=== PATIENT | female | born 1990 | race Caucasian/White ===

== ENCOUNTER 2020-11-19 00:13 | Emergency (ER) | payer OTHER, SELFPAY ==
--- NOTE | ~2020-11-19 | US_ITS ---
EXAMINATION: US OB <=14 wk fetus w TV EXAM DATE: 11/19/2020 01:50 INDICATION: rule out ectopic C/O miscarriage. Passed clot. 1st trimester. TECHNIQUE: Pelvic obstetrical transabdominal sonogram was performed by a technologist. There are mu ltiple grayscale and Doppler images available for interpretation. There are no earlier studies of th is gestation for comparison. FINDINGS: The uterus measures 7.0 x 3.6 x 3.5 cm. There is gestation sac within the endometrium with a yolk sac identified. Mean sac diameter of 8 mm corresponds to estimated gestational age 5 weeks 3 d ays. No pole could be confirmed at this time, cannot confirm viability. No evidence of subchori onic hemorrhage. The ovaries were both identified and are morphologically normal, no extrauterine pre gnancy identified. IMPRESSION: Small intrauterine gestation sac, age by ultrasound 5 weeks 3 days. Cannot confirm viabi lity at this time. Consider 1-2 week follow-up ultrasound. Reviewed, dictated and finalized at location A. CTOR OF ROOMS IMPRESSION: Small intrauterine gestation sac, age by ultrasound 5 weeks 3 days . Cannot confirm viability at this time. Consider 1-2 week follow-up ultrasound .
[2020-11-19 00:17] VITALS: BP 134/78; PULSE 101; RESP 18; TEMP 35.9; O2SAT 98
--- NOTE | 2020-11-19 00:23 | ED.FEMALEGU ---
HPI - Female Genitourinary General Chief complaint: Urogenital-Female Stated complaint: miscarriage Time Seen by Provider: 11/19/20 00:23 Source: patient and family Limitations: no limitations History of Present Illness HPI Narrative: Patient is a 30-year-old female, with a history of tethered cord, spinal stimulator in place, currently G1, P0, 6 weeks dated by last menstrual period who presents for evaluation of vaginal bleeding. Patient reports some mild right-sided abdominal pain, vaginal spotting earlier this evening. Patient reports there was one blood clot present. She denies breast bleeding or soaking through greater than 1-2 pads per hour. She denies any current pain. No nausea, vomiting. No back pain, dysuria or hematuria. Patient is supposed to be following with [facility] physician at [facility] for this , currently has an appointment scheduled for next week. She has not had an ultrasound yet this . No intercourse this evening. No pelvic trauma. No recent heavy lifting. Related Data Home Medications Medication Instructions Recorded Confirmed Cymbalta 11/19/20 buspirone mg 11/19/20 desipramine 11/19/20 linaclotide [Linzess] mcg 11/19/20 Allergies Allergy/AdvReac Type Severity Reaction Status Date / Time cephalexin [From Keflex] Allergy Hives Verified 11/19/20 00:19 Review of Systems Review of Systems: Narrative: CONSTITUTIONAL: Denies fever, chills, or sweats. EYES: Denies visual changes, redness, or discharge. ENT: Denies rhinorrhea, congestion, sore throat, or otalgia. CARDIOVASCULAR: Denies chest pain, palpitations, or edema. RESPIRATORY: Denies cough or dyspnea. GASTROINTESTINAL: Denies abdominal pain, nausea, vomiting, or diarrhea. GENITOURINARY: Denies dysuria or hematuria. Reports vaginal bleeding. SKIN: Denies rash or itching. MUSCULOSKELETAL: Denies back pain, joint pain, or myalgia. NEUROLOGIC: Denies headache, numbness, or weakness. PSYCHIATRIC: Reports anxiety. [facility] Past Medical History Medical History Tethered cord syndrome Surgical History Surgical History S/P insertion of spinal cord stimulator Social History Social History (Updated 11/19/20 @ 00:40 by Isaura Tesfaye MD) Smoking status: Never smoker Alcohol intake: never Substance use: never Living arrangements: with family Gender identity (if verbalized by the patient): Female Sexual Orientation (if Verbalized by the Patient): Straight or Heterosexual Exam Narrative: Exam Narrative: GENERAL: Awake, alert, conversant HEAD: Normocephalic, atraumatic. EYES: PERRLA and EOMI. ENT: Nares clear, no rhinorrhea or epistaxis. Mucous membranes moist. NECK: Supple. CHEST: No respiratory distress, breathing even and non labored HEART: Regular rate, sinus rhythm ABDOMEN:Non distended, non tender : Labia majora and minora normal without lesions. Vagina without blood. No blood clots. No cervical motion tenderness. No adnexal tenderness or fullness bilaterally. Mucoid discharge present. EXTREMITIES: Normal range of motion. No edema. SKIN: Warm, dry, no rash. NEURO:No focal deficits. Alert and oriented x3 Course Vital Signs Vital signs: Vital Signs Temperature 35.9 C L 11/19/20 00:17 Pulse Rate 101 H 11/19/20 00:17 Respiratory Rate 18 11/19/20 00:17 Blood Pressure 134/78 11/19/20 00:17 Pulse Oximetry 98 11/19/20 00:17 Temperature 36.9 C 11/19/20 02:41 Pulse Rate 78 11/19/20 02:41 Respiratory Rate 16 11/19/20 02:41 Blood Pressure 138/86 11/19/20 02:41 Pulse Oximetry 100 11/19/20 02:41 MDM - Female Genitourinary MDM Narrative Medical decision making narrative: Patient presented for evaluation of vaginal bleeding in setting of early . At the time of assessment, ABCs are intact and vital signs are stable. Laboratory results
[2020-11-19 00:50] LABS: Basophils Absolute Auto 0.1 K/mm3 (0.0-0.1); Basophils Percent Auto 0.7 % (0.2-1.2); Eosinophils Absolute Auto 0.2 K/mm3 (0-0.3); Eosinophils Percent Auto 2.1 % (0-4.4); Hemoglobin 13.8 g/dL (12.0-15.0); Immature Granulocyte Absolute 0.02 K/mm3 (0.00-0.031); Immature Granulocyte Percent A 0.2 % (0-0.5); Lymphocytes Percent Auto 34.2 % (18.3-44.2); Mean Corpuscular HGB Conc 33.7 g/dl (32-36); Mean Corpuscular Hemoglobin 32.2 pg (26-34); Mean Corpuscular Volume 95.6 fl (80-100); Monocytes Absolute Auto 0.7 K/mm3 (0.1-0.6); Monocytes Percent Auto 8.2 % (2.6-8.5); Neutrophils Absolute Auto 4.8 K/mm3 (1.3-6.7); Neutrophils Percent Auto 54.6 % (45.5-73.1); Platelet Count Result 331 k/mm3 (150-375); Red Blood Count 4.29 M/mm3 (4.2-5.4); White Blood Count 8.8 K/mm3 (4.5-10.0)
[2020-11-19 01:02] LABS: Alanine Aminotransferase 23 U/L (4-35); Albumin Level 4.2 g/dL (3.5-5.1); Alkaline Phosphatase 74 U/L (38-126); Anion Gap 8 mmol/L (8-16); Aspartate Amino Transferase 28 U/L (14-36); Bilirubin,Total 0.4 mg/dL (0.2-1.3); Blood Urea Nitrogen 11 mg/dL (7-17); Calcium 9.6 mg/dL (8.4-10.2); Carbon Dioxide 26 mmol/L (22-30); Chloride 102 mmol/L (98-107); Estimated CRCL calculation 118 ml/min; Estimated Glomerular Filt Rate > 60; Glucose 96 mg/dL (65-105); Potassium 3.8 mmol/L (3.4-5.0); Sodium 136 mmol/L (137-145)
[2020-11-19 01:09] LABS: Prothrombin Time 13.4 Seconds (11.1-14.7)
[2020-11-19 01:10] LABS: Partial Thromboplastin Time 24.6 SECONDS (22.3-36.8)
[2020-11-19 01:32] LABS: Add Urine Microscopic? YES; Appearance Urine Cloudy (Clear); Bacteria Urine Trace /hpf; Bilirubin Urine Negative (Negative); Blood Urine 1+ (Negative); Color Urine Yellow (Yellow); Glucose Urine UA Negative (Negative); Ketones Urine Negative (Negative); Leukocyte Esterase Ur 2+ LEU/UL (Negative); Mucus Urine Rare /lpf; Nitrate Urine Negative (Negative); Protein Urine Negative (Negative); Specific Grav Ur 1.024 (1.001-1.035); Squamous Epithelial Cell Urine Many /hpf (Few); Urobilinogen Urine Negative mg/dL (<2.0); WBC Urine 31-50 /hpf
[2020-11-19 02:41] VITALS: BP 138/86; PULSE 78; RESP 16; TEMP 36.9; O2SAT 100
== END 2020-11-19 02:42 | disposition home or self-care (01) ==
PROVIDERS: Emergency Provider Emergency Medicine
DX: O23.11 Infections of bladder in pregnancy, first trimester (principal); O99.891 Other specified diseases and conditions complicating pregnancy; Q06.8 Other specified congenital malformations of spinal cord; Z3A.01 Less than 8 weeks gestation of pregnancy; Z96.82 Presence of neurostimulator
CPT/HCPCS: 36415; 76801; 76817; 80053; 81001; 84443; 84702; 85025; 85461; 85610; 85730; 87086; 99284

== ENCOUNTER 2022-04-25 12:29 | Emergency (ER) | payer OTHER, SELFPAY ==
--- NOTE | 2022-04-25 12:39 | ED.URI ---
HPI - URI/Sore Throat General Chief Complaint: Upper Respiratory Infection Stated Complaint: SORE THROAT/SWOLLEN GLANDS Time Seen by Provider: 04/25/22 12:39 Source: patient and RN notes reviewed History of Present Illness HPI Narrative: Patient is a 31-year-old female who presents the urgent care with complaints of sore throat, swollen glands, congestion and body aches. Patient states that started last Monday and she did have a negative COVID test yesterday. Patient denies of any ill exposures. Denies any fever, nausea or vomiting. No other acute complaints. No acute distress noted. Patient aware of the plan of care. Some parts of this dictation were generated by voice recognition software and may contain typographical and/or grammatical inaccuracies. Related Data Home Medications Medication Instructions Recorded Confirmed buspirone 15 mg tablet tablet 04/25/22 desipramine 10 mg tablet tablet 04/25/22 duloxetine 30 mg capsule,delayed cap PO 04/25/22 release linaclotide 290 mcg capsule cap 04/25/22 (Linzess) norgestimate 0.18 mg/0.215 mg/0.25 tablet 04/25/22 mg-ethinyl estradiol 25 mcg tablet (Fti-Lh-Yhsjtbit) topiramate 25 mg tablet tablet 04/25/22 Allergies Allergy/AdvReac Type Severity Reaction Status Date / Time cephalexin [From Keflex] Allergy Hives Verified 04/25/22 13:11 Review of Systems Review of Systems: CONSTITUTIONAL: Denies fever, chills, or sweats. EYES: Denies visual changes, redness, or discharge. ENT: Reports of postnasal drainage, sinus congestion and sore throat CARDIOVASCULAR: Denies chest pain, palpitations, or edema. RESPIRATORY: Denies cough or dyspnea. GASTROINTESTINAL: Denies abdominal pain, nausea, vomiting, or diarrhea. GENITOURINARY: Denies dysuria or hematuria. SKIN: Denies rash or itching. MUSCULOSKELETAL: Denies back pain, joint pain. Reports of body aches NEUROLOGIC: Denies headache, numbness, or weakness. All other systems reviewed are negative, except as documented in HPI. [facility] Past Medical History Medical History Tethered cord syndrome Surgical History Surgical History S/P insertion of spinal cord stimulator Social History Social History (Updated 11/19/20 @ 00:40 by Isaura Tesfaye MD) Smoking status: Never smoker Alcohol intake: never Substance use: never Gender identity (if verbalized by the patient): Female Sexual Orientation (if Verbalized by the Patient): Straight or Heterosexual Comments At the time of my signature, I reviewed and agree with the nursing past medical, surgical, social, and family history. There is no relevant family history pertinent to the patient complaint. Exam Narrative: GENERAL: This is a well-nourished, well-developed patient, in no apparent distress. HEAD: normocephalic, atraumatic. EYES: PERRL. Sclera clear/white. Vision is grossly intact. EARS: External ears normal, auditory canals clear and without drainage, TMs normal without perforation. Hearing grossly intact. NOSE: External nose normal with no obvious nasal discharge, nares without redness, clear rhinorrhea. THROAT: Mucous membranes moist, mild bilateral tonsillar edema with left exudate and moderate postnasal drainage. NECK: Neck supple, non-tender without lymphadenopathy CARDIOVASCULAR: Regular rate and rhythm without murmurs, gallops, or rubs. RESPIRATORY: Clear to auscultation. Breath sounds equal bilaterally. No wheezes, rales, or rhonchi. SKIN: warm, intact with no suspicious lesions or rash, good texture and turgor. NEURO: awake, alert, and oriented to person, place and time. There were no obvious focal neurologic abnormalities. EXTREMITIES: No clubbing, cyanosis, or edema. Course Course Level of Care: Express Care Visit Vital Signs Vital signs: Vital Signs Temperature 97.3 F L 04/25/22 13:12 Pulse Rate 129 H 04/25/22
[2022-04-25 13:12] VITALS: BP 122/71; PULSE 129; RESP 16; TEMP 36.3; O2SAT 100
[2022-04-25 13:14] VITALS: BP 122/71; PULSE 129; RESP 16; TEMP 36.3; O2SAT 100
== END 2022-04-25 13:35 | disposition home or self-care (01) ==
PROVIDERS: Emergency Provider Nurse Practitioner Family
DX: B34.9 Viral infection, unspecified (principal); J02.9 Acute pharyngitis, unspecified
CPT/HCPCS: 87081; 87880; 99213; G0463

== ENCOUNTER 2022-07-27 13:48 | Emergency (ER) | payer OTHER, SELFPAY ==
[2022-07-27] VITALS (19 sets, daily range): BP systolic 107–143; BP diastolic 56–80; PULSE 116–126; RESP 16–18; TEMP 36.8; O2SAT 95–100
--- NOTE | ~2022-07-27 | XR_ITS ---
XR lumbar spine 2-3V DATE: 07/27/2022 16:05 INDICATION: Back pain TECHNIQUE: AP, lateral, coned lateral lumbosacral views COMPARISON: 07/27/2022 thoracic spine FINDINGS: Status post laminectomy at L5. Small screws are noted at the posterior elements at L4. Normal alignment of the lumbar spine. Lumbar and lumbosacral interspaces are relatively well preserve d. No fracture or bone destruction is evident. Included lower thoracic and lumbar pedicles are intact . Generated on ice is noted in the subcutaneous tissues of the left back, with neurotransmitter leads e xtending into the posterior aspect of the thoracic spinal canal the T8-9 level. Minimal levoscoliosis of the lumbar spine. The sacroiliac joints are intact. Status post cholecystectomy. IMPRESSION: Left sided generator and lower posterior thoracic spinal neurotransmitter leads Status post cholecystectomy Status post laminectomy Reviewed, dictated and finalized at location B. IMPRESSION: Left sided generator and lower posterior thoracic spinal neurotrans mitter leads Status post cholecystectomy Status post laminectomy
--- NOTE | ~2022-07-27 | CT_ITS ---
EXAMINATION: CTA chest PE protocol DATE: 07/27/2022 18:15 INDICATION: chest pain, dyspnea, elevated dimer TECHNIQUE: Computed tomography angiography (CTA) of the chest was performed with 100 mL Omnipaque-350 intravenous contrast timed to evaluate the pulmonary arteries. Coronal maximum intensity projection 3D-reconstructions were created by the technologist. The dose-length product (DLP) was 315.86 mGy-cm. Automated exposure control and iterative reconstruction technique were employed. COMPARISON: Chest x-ray, same date. FINDINGS: Lung parenchyma and airways: Motion limited evaluation. Scattered mild groundglass opacities mosaic a ttenuation. Left dependent atelectasis. Pleura: Unremarkable. Thoracic inlet, axillae and chest wall: Unremarkable. Thoracic aorta: Normal. Mediastinum: Normal. Heart and pericardium: Normal. Coronary artery calcifications: Absent. Upper abdomen: No significant finding. Bones: No acute osseous finding. Stimulator leads terminate in the thoracic canal. Pulmonary arteries: Study quality: Examination severely limited by motion artifact, particularly with in the lower lobes. No central or segmental upper lobe embolus. IMPRESSION: Examination is nondiagnostic for pulmonary embolus in the lower lobes. No central or segmental upper lobe embolus detected.. Mild mosaic attenuation which can be seen with asthma, bronchiolitis oblitera ns, hypersensitivity pneumonitis, and chronic thromboembolic disease. Reviewed, dictated and finalized at location K. IMPRESSION: Examination is nondiagnostic for pulmonary embolus in the lower lobes. No centr al or segmental upper lobe embolus detected.. Mild mosaic attenuation which can be seen with asthma, bronchiolitis obliterans, hypersensitivity pneumonitis, a nd chronic thromboembolic disease.
--- NOTE | ~2022-07-27 | XR_ITS ---
EXAMINATION: XR chest 2V Exam Date/Time: 07/27/2022 14:38 CDT HISTORY: left posterior rib pain,midsternal chest pain. no cardiac hx Comparison: EXAMINATION: XR chest 2V Exam Date/Time: 07/27/2022 14:38 CDT HISTORY: left posterior rib pain,midsternal chest pain. no cardiac hx Comparison: None available. RESULT: Lines, tubes, and devices: Cholecystectomy clips. Stimulator leads terminating over the lower thorac ic spine. Lungs and pleura: Clear. Cardiomediastinal silhouette: Normal. Other: No acute osseous or upper abdominal finding. Thoracic scoliosis IMPRESSION: No acute cardiopulmonary process. . RESULT: Lines, tubes, and devices: None. Lungs and pleura: Clear. Cardiomediastinal silhouette: Stable. Other: No acute osseous or upper abdominal finding. IMPRESSION: No acute cardiopulmonary process. Reviewed, dictated and finalized at location K. IMPRESSION: No acute cardiopulmonary process. . RESULT: Lines, tubes, and devices: None. Lungs and pleura: Clear. Cardiomediastinal silhouette: Stable. Other: No acute osseous or upper abdominal finding.
--- NOTE | ~2022-07-27 | XR_ITS ---
XR thoracic spine 2V DATE: 07/27/2022 16:05 INDICATION: Thoracic pain. TECHNIQUE: AP and lateral views COMPARISON: None FINDINGS: There is approximately 30 degrees dextroscoliosis measured from T4 to T8. No fracture or dislocation or bone destruction is detected. The thoracic pedicles are intact. No para spinal soft tissue thickening. A generator device overlies the left abdomen with leads at the posterior spinal canal at the T8-9 lev el. Status post cholecystectomy. IMPRESSION: Dextroscoliosis Reviewed, dictated and finalized at location B. IMPRESSION: Dextroscoliosis
--- NOTE | 2022-07-27 14:15 | ECG_ITS ---
Measurements Intervals [place] Rate: 126 P: 63 [place]: 147 QRS: 34 QRSD: 90 T: 60 QT: 335 QTc: 486 Interpretive Statements SINUS TACHYCARDIA POSSIBLE RIGHT VENTRICULAR CONDUCTION DELAY [RSR (QR) IN V1/V2] NONSPECIFIC ST & T-WAVE ABNORMALITY ABNORMAL RHYTHM ECG NO PREVIOUS ECG AVAILABLE FOR COMPARISON Electronically Signed On 07-27-2022 20:01:59 CDT by Veronica Jung M.D.
[2022-07-27 14:44] LABS: Basophils Absolute Auto 0.1 K/mm3 (0.0-0.1); Basophils Percent Auto 0.6 % (0.2-1.2); Eosinophils Percent Auto 0.2 % (0-4.4); Hematocrit 42.2 % (37.0-47.0); Hemoglobin 13.4 g/dL (12.0-15.0); Immature Granulocyte Absolute 0.03 K/mm3 (0.00-0.031); Immature Granulocyte Percent A 0.3 % (0-0.5); Lymphocytes Absolute Auto 0.82 K/mm3 (0.9-3.2); Lymphocytes Percent Auto 7.9 % (18.3-44.2); Mean Corpuscular HGB Conc 31.8 g/dl (32-36); Mean Corpuscular Hemoglobin 28.3 pg (26-34); Mean Platelet Volume 10.1 fl (7.4-10.4); Monocytes Absolute Auto 0.6 K/mm3 (0.1-0.6); Monocytes Percent Auto 6.1 % (2.6-8.5); Neutrophils Absolute Auto 8.8 K/mm3 (1.3-6.7); Neutrophils Percent Auto 84.9 % (45.5-73.1); Platelet Count Result 363 k/mm3 (150-375); Red Blood Count 4.74 M/mm3 (4.2-5.4); Red Cell Distribution Width 15.2 % (11.5-14.5); White Blood Count 10.3 K/mm3 (4.5-10.0)
[2022-07-27 14:52] LABS: Alanine Aminotransferase 25 U/L (6-35); Albumin Level 4.4 g/dL (3.5-5.1); Alkaline Phosphatase 132 U/L (38-126); Anion Gap 14 mmol/L (8-16); Aspartate Amino Transferase 19 U/L (14-36); Bilirubin,Total 0.5 mg/dL (0.2-1.3); Blood Urea Nitrogen 11 mg/dL (7-17); Calcium 9.1 mg/dL (8.4-10.2); Carbon Dioxide 21 mmol/L (22-30); Chloride 101 mmol/L (98-107); Estimated CRCL calculation 91 ml/min; Estimated Glomerular Filt Rate > 60; Glucose 98 mg/dL (65-110); Potassium 3.7 mmol/L (3.4-5.0); Sodium 136 mmol/L (137-145)
--- NOTE | 2022-07-27 15:17 | ED.GENADULT ---
HPI - General Adult General Chief complaint: Unspecified Stated complaint: Think i have a rib out Time Seen by Provider: 07/27/22 15:17 Source: patient Mode of arrival: ambulatory Limitations: no limitations History of Present Illness HPI narrative: Patient is a 32-year-old female with a history of tethered cord, spinal stimulator, presenting to the emergency department for evaluation anterior chest pain and back pain. Patient states that she has been having significant back pain since last night without recent fall or injury. Patient reports spasm-like pain and pressure. She reports pain with deep inspiration. She denies fever, chills, cough or hemoptysis. She denies radiation of the pain to the jaw, shoulder, she does report mild neck pain. She also reports lower back pain which is chronic for her but worsened from typical. Patient did see a chiropractor today which did not improve her symptoms. She denies any significant lower extremity weakness or numbness. She denies any saddle anesthesia, difficulty with bowel or bladder function. Patient has been taking Tylenol and ibuprofen at home without improvement in her symptoms. Pt did see her chiropractor today, states he used a heating pad, gun which does work with electric impulses, and then denies any large adjustment or manipulation today. Pt states her pain was better for an hour before spasm began again. Pt also states her stimulator had been turned off, and that it has been present for the past ten years. She is wondering if that is causing an exacerbation of her pain. In the past, gabapentin has helped the most with pain. She has not followed with pain management as numerous medications with pain management never worked. Related Data Home Medications Medication Instructions Recorded Confirmed buspirone 15 mg tablet 1 tablet PO BID 04/25/22 04/25/22 desipramine 10 mg tablet 1 tablet PO BID 04/25/22 04/25/22 duloxetine 30 mg capsule,delayed 1 cap PO BID 04/25/22 04/25/22 release linaclotide 290 mcg capsule 1 cap PO BID 04/25/22 04/25/22 (Linzess) norgestimate 0.18 mg/0.215 mg/0.25 1 tablet PO DAILY 04/25/22 04/25/22 mg-ethinyl estradiol 25 mcg tablet (Chf-Ty-Qhyymszb) topiramate 25 mg tablet 1 tablet PO BID 04/25/22 04/25/22 Allergies Allergy/AdvReac Type Severity Reaction Status Date / Time cephalexin [From Keflex] Allergy Hives Verified 07/27/22 14:15 Review of Systems Review of Systems: CONSTITUTIONAL: Denies fever, chills, or sweats. ENT: Denies rhinorrhea, congestion, sore throat, or otalgia. CARDIOVASCULAR: Reports chest pain, palpitations, denies leg edema RESPIRATORY: Denies cough or dyspnea. GASTROINTESTINAL: Reports pelvic pain, nausea GENITOURINARY: Denies dysuria or hematuria. SKIN: Denies rash or itching. MUSCULOSKELETAL: Reports back pain without other joint pain or myalgias NEUROLOGIC: Denies headache, numbness, or weakness. [facility] Past Medical History Medical History Tethered cord syndrome Surgical History Surgical History S/P insertion of spinal cord stimulator Social History Social History Smoking status: Never smoker Alcohol intake: never Substance use: never Gender identity (if verbalized by the patient): Female Sexual Orientation (if Verbalized by the Patient): Straight or Heterosexual Exam Narrative: GENERAL: Awake, alert, conversant HEAD: Normocephalic, atraumatic. EYES: PERRLA and EOMI. ENT: Nares clear, no rhinorrhea or epistaxis. Mucous membranes moist. NECK: Supple. CHEST: No respiratory distress, breathing even and non labored, positive chest wall tenderness HEART: Tachycardic rate, sinus rhythm Thorax: No midline cervical tenderness, positive thoracic and lumbar midline tenderness, positive paraspinal tenderness ABDOMEN:Non distended,
[2022-07-27] MEDS: diazePAM (*CRX) 5 MG TABLET PO (15:44)
--- NOTE | 2022-07-27 15:50 | PC.NURSE ---
patient does not want to give a urine specimen for preg test since she is on her period. patient is ok to sign refusal form
[2022-07-27] MEDS: MORPHINE SULFATE (*CRX) 4 MG/ML INJ IV PUSH (16:24)
[2022-07-27] MEDS: SODIUM CHLORIDE 0.9% IV 500 ML 999 ML IV CONT (16:24)
[2022-07-27] MEDS: ONDANSETRON INJ 4 MG/2 ML VIAL IV PUSH (16:24)
[2022-07-27 17:18] LABS: INR 1.1; Prothrombin Time 13.4 Seconds (11.1-14.7)
[2022-07-27 17:19] LABS: Partial Thromboplastin Time 25.1 SECONDS (22.3-36.8)
[2022-07-27 17:24] LABS: Troponin I < 0.012 ng/mL (0.000-0.034)
[2022-07-27 17:51] LABS: D Dimer 0.85 ug/mL (<0.48)
[2022-07-27] MEDS: KETOROLAC 15 MG/ML VIAL (*BKC) IV PUSH (19:12)
[2022-07-27 19:30] LABS: Troponin I < 0.012 ng/mL (0.000-0.034)
== END 2022-07-27 20:02 | disposition home or self-care (01) ==
PROVIDERS: Emergency Provider Emergency Medicine
DX: M62.830 Muscle spasm of back (principal); Q06.8 Other specified congenital malformations of spinal cord; Z96.82 Presence of neurostimulator; R00.0 Tachycardia, unspecified; R94.31 Abnormal electrocardiogram [ECG] [EKG]
CPT/HCPCS: 36415; 71046; 71275; 72070; 72100; 80053; 84484; 85025; 85380; 85610; 85730; 93005; 96374; 96375; 99284; A9270; J1885; J2270; J2405; J7040; Q9967

== ENCOUNTER 2023-03-14 07:28 | Emergency (ER) | payer OTHER, SELFPAY ==
[2023-03-14 07:32] VITALS: BP 116/62; PULSE 112; RESP 18; TEMP 36.4; O2SAT 100
[2023-03-14 08:07] LABS: Strep Group A RT-PCR DETECTED (Negative)
--- NOTE | 2023-03-14 09:05 | ED.WEAKNESS ---
HPI - Weakness General Chief complaint: Weakness Stated complaint: sore throat Time Seen by Provider: 03/14/23 08:45 History of Present Illness HPI Narrative: Pt complains of general body aches and sore throat and difficulty swallowing for a couple of days. Pt denies fever. No known exposures to strep. Related Data Home Medications Medication Instructions Recorded Confirmed norgestimate 0.18 mg/0.215 mg/0.25 1 tablet PO DAILY 04/25/22 04/25/22 mg-ethinyl estradiol 25 mcg tablet (Yvj-Lr-Deyzjthx) buspirone 15 mg tablet 15 mg PO BID 02/09/23 duloxetine 30 mg capsule,delayed 30 mg PO TID 02/09/23 release linaclotide 290 mcg capsule 290 mcg PO DAILY 02/09/23 (Linzess) Allergies Allergy/AdvReac Type Severity Reaction Status Date / Time cephalexin [From Keflex] Allergy Hives Verified 03/14/23 07:38 Review of Systems Review of Systems: All systems reviewed & are unremarkable except as noted in HPI and below PMFSH Past Medical History Medical History Anxiety Cholecystectomy planned 2012 Tethered cord syndrome Surgical History Surgical History H/O section 2020 History of back surgery L4- L5 2010 X4 S/P insertion of spinal cord stimulator Social History Social History Smoking status: Never smoker Alcohol intake: current Substance use: never Living arrangements: with family Gender identity (if verbalized by the patient): Female Sexual Orientation (if Verbalized by the Patient): Straight or Heterosexual Exam Const: General: healthy appearing and no acute distress Nutritional Appearance: well nourished Orientation/consciousness: patient oriented x3 Limitations: no limitations HENMT: Head: normal to inspection Mouth: Yes Normal oral and palatal mucosa present Other: posterior pharynx erythematous with exudate and tonsils touching uvula at midline but no definite abscess Eyes: EOM: EOMs intact bilaterally Neck: Neck: normal visual inspection and lymphadenopathy Resp: Effort & Inspection: normal respiratory effort Auscultation: clear to auscultation bilaterally Cardio: Rate: regular rate Rhythm: regular rhythm GI: GI Palp: Yes Soft to palpation Auscultation: normal bowel sounds Skin: General skin exam: normal color Rashes: no rashes Wounds: no wounds Neuro: General: patient oriented x3 and moves all extremities Speech: normal speech Extrem: General: normal to inspection and no clubbing, cyanosis or edema Psych: Mental Status: mental status grossly normal Affect: normal affect Attitude: cooperative Course Vital Signs Vital signs: Vital Signs Temperature 97.6 F 03/14/23 07:32 Pulse Rate 112 H 03/14/23 07:32 Respiratory Rate 18 03/14/23 07:32 Blood Pressure 116/62 03/14/23 07:32 Pulse Oximetry 100 03/14/23 07:32 Oxygen Delivery Room Air 03/14/23 07:32 Temperature 97.6 F 03/14/23 07:32 Pulse Rate 112 H 03/14/23 07:32 Respiratory Rate 18 03/14/23 07:32 Blood Pressure 116/62 03/14/23 07:32 Pulse Oximetry 100 03/14/23 07:32 Oxygen Delivery Room Air 03/14/23 07:32 MDM - Weakness MDM Narrative Medical decision making narrative: Pt has ST and body aches strep screen positive. Pt would like a IM injection so she doesn't have to swallow pills. Bicillin LA 1.2 million units IM. Will prescribe viscous lido for pain control, soft foods and liquids for now until better. Lab Data Attestation: I reviewed the patient's lab results. Labs: Lab Results 03/14/23 Range/Units 07:41 Group A Strep (PCR) Detected A (Negative) Discharge Plan Discharge Clinical Impression: Strep pharyngitis Patient Disposition: Home, Self-Care Condition: Stable Instructions: Antibiotic Form, Strep Throat (DC) Prescriptions: No Action
== END 2023-03-14 09:20 | disposition home or self-care (01) ==
PROVIDERS: Emergency Provider Emergency Medicine
DX: J02.0 Streptococcal pharyngitis (principal); F41.9 Anxiety disorder, unspecified; Z90.49 Acquired absence of other specified parts of digestive tract; Z96.82 Presence of neurostimulator
CPT/HCPCS: 87651; 96372; 99283; A4565; J0558

== ENCOUNTER 2023-04-20 00:14 | Day surgery (SDC) | payer OTHER, SELFPAY ==
[2023-04-12 14:33] VITALS: BMI 26.6
--- NOTE | 2023-04-12 14:44 | PC.NURSE ---
Report to the Outpatient Waiting Room, entrance under the green pavilion located off [facility], at time 9:30 on date 04/20/23. Planned Procedure Time: 11:30. Time changes happen often and if your time is changed the preop area will call you the afternoon before. - You and your visitor will be asked to self-screen and do not enter if you have any COVID symptoms. - A mask is optional within the hospital at this time. Patients may have clear liquids (water, carbonated beverages, clear teas, apple juice) until 3 hours prior to surgery (8:30) with a maximum of 20 ounces. - No food from midnight until time of surgery Take the following medications with a SIP of water the morning of surgery: BUSPIRONE, DULOXETINE DO NOT STOP ANY OF YOUR OTHER PRESCRIPTION MEDICATIONS PRIOR TO SURGERY EXCEPT THE FOLLOWING Medications to discontinue per physician: N/A Date to take last dose: N/A Please no make-up, nail guatemalan, hairspray, perfume, deodorant, or body powder the day of surgery. No jewelry (including any body piercings) or valuables the day of surgery, leave them at home. Please take a shower or bath the night before, or the morning of, surgery with an antibacterial soap. Wear comfortable, loose fitting clothing. - Jewelry must be removed prior to entering the operating room. Rings and piercings that are not removed may be cut off. - The hospital will not accept responsibility for valuables. - Please leave all valuables, including medications, at home the day of surgery. If you are going home after surgery, a licensed pile driver engineer must drive you home. - NO public transportation without another adult if you receive anesthesia. - We recommend that an adult stay with you for 24 hours following discharge. - We also recommend that you do not drive, make important decision, drink alcoholic beverages, or take any drugs that were not prescribed by your health care provider for at least 24 hours after your discharge time. Follow any additional instructions given to you from your surgeon. If you or anyone in your household have experienced Covid symptoms in the past week, please notify your surgeon or the nurse liaison at the phone number below for possible testing. Telephone instructions given to PT - ADENIKE DELACRUZ and asked if any additional questions and then verbalized understanding. Patient advised to call surgeon office or pre surgery nurse liaison [phone] if any additional questions.
[2023-04-20] VITALS (12 sets, daily range): BP systolic 121–137; BP diastolic 66–85; PULSE 100–124; RESP 12–20; TEMP 36.5–36.9; O2SAT 92–100
--- NOTE | ~2023-04-20 | XR_ITS ---
EXAMINATION: XR fluoroscopy no charge DATE: 04/20/2023 12:28 INDICATION: Replacement of toast, stimulator leads TECHNIQUE: 6 fluoroscopic images of the lower thoracic spine were obtained during procedure performed by Dr Yahir Urias. Radiologist was not present for the imaging or procedure. The amount of fluoroscop y time used during this procedure was 0.1 minutes. COMPARISON: 07/27/2022 FINDINGS: [employer] image redemonstrates a pair of stimulator leads project over the central canal of the lower tho racic spine with distal tips at the level of T7-T8. Subsequent images demonstrate removal of the lead s and placement of a set of 4 new leads also position of the central canal of the lower thoracic spin e with distal tips also at the level of T7-T8. Cholecystectomy clips in the right upper quadrant. IMPRESSION: 1. Fluoroscopy utilized during placement of spinal stimulator leads at the lower thoracic spine. See procedure note for further detail. Reviewed, dictated and finalized at location A. IMPRESSION: 1. Fluoroscopy utilized during placement of spinal stimulator leads at the lowe r thoracic spine. See procedure note for further detail.
[2023-04-20] MEDS: VANCOMYCIN 1,250 MG/NS 250 ML BAG 166.67 MG IVPB (10:15)
[2023-04-20] MEDS: LACTATED RINGERS 1,000 ML 30 ML IV CONT ×3 (10:15→14:33)
[2023-04-20 10:25] LABS: Hematocrit 43.1 % (37.0-47.0); Hemoglobin 13.8 g/dL (12.0-15.0)
--- NOTE | 2023-04-20 10:33 | P.HP_ITS ---
H&P: HPI History of Present Illness Date/Time: 04/20/23 10:33 Chief Complaint: Esperanza is a 32-year-old female with dorsal column stimulator in place which needs to be replaced both the generator and lead. The current system is not functioning. She has not changed appreciably since we last saw her. She does not have specific muscle group weakness or dermatomal numbness. She is not having bowel or bladder difficulty. Review of Systems Review of Systems: Patient denies shortness of breath, cough, fever, chills, nausea, vomiting, weight loss, weight gain, chest pain, dysuria. She has back and leg pain. Review of systems is otherwise negative on 12 systems except as noted elsewhere. [facility] Past Medical History Medical History Anxiety Cholecystectomy planned 2012 Tethered cord syndrome Surgical History Surgical History H/O section 2020 History of back surgery L4- L5 2009 X4 S/P insertion of spinal cord stimulator Social History Social History Smoking status: Never smoker Alcohol intake: current Alcohol use details: VERY RARE Substance use: never Substance use type: does not use Living arrangements: with family Gender identity (if verbalized by the patient): Female Sexual Orientation (if Verbalized by the Patient): Straight or Heterosexual Spiritual care concerns: No Meds Home Medications and Allergies Home Medications Medication Instructions Recorded Confirmed Type buspirone 15 mg tablet 15 mg PO BID 02/09/23 04/12/23 History duloxetine 30 mg capsule,delayed 90 mg PO DAILY 02/09/23 04/12/23 History release linaclotide 290 mcg capsule 290 mcg PO DAILY 02/09/23 04/12/23 History (Linzess) desipramine 25 mg tablet 25 mg PO HS 04/12/23 04/12/23 History Allergies Allergy/AdvReac Type Severity Reaction Status Date / Time cephalexin [From Keflex] Allergy Hives Verified 04/12/23 14:30 Exam Narrative: Strength is 5/5 in all muscle groups of the bilateral lower extremities. Sensation is intact to light touch throughout the lower extremities. Regular rate and rhythm Breathing is nonlabored Assessment and Plan Assessment and plan (1) Chronic leg pain: Code(s): M79.606 - Pain in leg, unspecified; G89.29 - Other chronic pain Status: Acute (2) Chronic back pain: Code(s): M54.9 - Dorsalgia, unspecified; G89.29 - Other chronic pain Status: Acute Plan Esperanza is a 32-year-old female who presents for removal and replacement for dorsal column stimulator. I again described to her that operation, its risks, potential benefits, the operative and postoperative course in detail and answered all her questions personally. She indicates understanding and elects to proceed with the operation.
--- NOTE | 2023-04-20 10:35 | WPDHPUPDATE1 ---
History and Physical Update Update Date/Time: 04/20/23 10:35 History and Physical has been reviewed, including an updated exam of the patient. There are NO changes in the patient's condition. Risks, benefits, and alternatives have been discussed and questions answered. Patient agrees to proceed with procedure.
--- NOTE | 2023-04-20 10:51 | P.PNAN_ITS ---
Anes - Initial Pre Proc Eval Procedure: Operation Date: 04/20/23 11:30 Proposed Procedures p Removal and Replacement Dorsal Column Stimulator Leads and Generator - Jair Urias MD Date/Time: 04/20/23 10:51 Surgeon: Jair Urias MD Pre Op Diagnosis: myelomeningocele, chronic back and leg pain Patient Data Age: 32 Gender: F Height: 1.65 m Weight: 71.7 kg Last Vital Signs Temp 98.5 F 04/20/23 10:26 Pulse 101 H 04/20/23 10:26 Resp 14 04/20/23 10:26 BP 127/79 04/20/23 10:26 Pulse Ox 100 04/20/23 10:26 O2 Del Method Room Air 04/20/23 10:26 Allergies Allergy/AdvReac Type Severity Reaction Status Date / Time cephalexin [From Keflex] Allergy Hives Verified 04/20/23 10:40 Home Medications Medication Instructions Recorded Confirmed Type buspirone 15 mg tablet 15 mg PO BID 02/09/23 04/12/23 History duloxetine 30 mg capsule,delayed 90 mg PO DAILY 02/09/23 04/12/23 History release linaclotide 290 mcg capsule 290 mcg PO DAILY 02/09/23 04/12/23 History (Linzess) desipramine 25 mg tablet 25 mg PO HS 04/12/23 04/12/23 History Laboratory Tests 04/20/23 10:14 Hgb 13.8 g/dL (12.0-15.0) Hct 43.1 % (37.0-47.0) Patient hx anesthesia problems: none Family hx anesthesia problems: none Results Review: All pre-operative results and documents have been reviewed as part of the pre- operative evaluation. [facility], [facility] Past Medical History Medical History Anxiety Cholecystectomy planned 2012 Tethered cord syndrome Surgical History Surgical History H/O section 2020 History of back surgery L4- L5 2009 X4 S/P insertion of spinal cord stimulator Social History Social History Smoking status: Never smoker Alcohol intake: current Alcohol use details: VERY RARE Substance use: never Substance use type: does not use Living arrangements: with family Gender identity (if verbalized by the patient): Female Sexual Orientation (if Verbalized by the Patient): Straight or Heterosexual Spiritual care concerns: No Anes - Eval Final PreProcedure Day of Procedure 04/20/23 10:51 Patient weight: normal Heart: regular rate and rhythm Lungs: clear to auscultation Airway: Mallampati scale class II Neurological: alert and oriented Last oral intake: >/= 8 hours ASA classification: II Emergent: no Anesthetic plan: proceed Anesthesia type and monitoring: general GIVS and standard monitoring Results Review: All pre-operative results and documents have been reviewed as part of the pre- operative evaluation. Informed Consent: The patient's anesthetic plan and its attendant risks and benefits were discussed with the patient/family/POA. Questions were solicited and answers provided to the satisfaction of the patient/family/POA.
[2023-04-20] MEDS: CLINDAMYCIN 900 MG/D5W 50 ML 900 MG/50 ML PIGGYBACK 50 MG IVPB (11:10)
[2023-04-20] MEDS: LIDO 1%/EPINEPHRINE 1:100,000 50 ML VIAL 10 ML INFILTRATE (11:38)
[2023-04-20] MEDS: VANCOMYCIN HCL 1,000 MG VIAL 500 MG TOPICAL (11:39)
--- NOTE | 2023-04-20 12:35 | P.OP_ITS ---
Procedure Note - Detailed Date of Procedure 04/20/23 Pre-op Diagnosis myelomeningocele, chronic back and leg pain Post-op Diagnosis Same Procedure Performed Removal and replacement of dorsal column stimulator lead and generator Surgeon Jair Urias MD Anesthesia General Description of Procedure The patient was brought to the operating room in the supine position, was sedated, intubated and placed under general anesthesia in routine fashion. She was then turned into the prone position on a Feliz frame. Area of operation on her back was examined, marked for incision, prepped and draped in routine sterile fashion. Incision was marked in the midline over the previous incision slightly lengthen inferiorly and superiorly and transversely in the left flank over the previous incision there. These areas were injected with 0.5% lidocaine [id number] epinephrine. Intravenous antibiotics given prior to incision. Incisions were made with a 10 blade scalpel. A subperiosteal dissection of the muscle soft tissue away from spinous process and lamina was performed with a subperiosteal elevator and Bovie cautery. A verifying x-rays obtained to verify position of the current lead and the level of the operation. At the flank incision of pocket was created 1 cm deep in the tissue using curved [place] sc issors. That pocket of was already there but was widened. The wires and generator were pulled free from the flank incision using Bovie cautery. The wires were cut and pulled through thoracic incision. The old generator was passed off the field. The wires were followed to the epidural space after the could anchors were detached from the fascia. Additional bone was removed from the inferior lamina until the shoulders of the lead were identified. A separate laminectomy was performed 1 level up using [place]ell rongeur Kerrison punches and curved curette until a short wide area the dura was uncovered. The new wider 32 contact lead was then placed into the dorsal epidural space until it was confirmed via behind the T8 and T9 vertebral bodies in the midline. The laminectomies were performed above and below T9. [place] was attached to the 2nd wire which was attached to the superior spinous process using a 3-0 Prolene suture. Tension relief loops were placed into each of the wires which were then very to the flank incision. Here they were inserted into the generator slots and secured the using the small screwdriver for that purpose. Impedance testing was carried out to confirm good connectivity which was confirmed. All the wounds were copiously irrigated with bacitracin irrigation all bleeding. Bipolar cautery. The generator was then placed in the pocket with excess wire coiled up underneath it and with vancomycin impregnated pellets around the device. The rest of the pellets were spread above and below the fascia the thoracic incision. The thoracic fascia was closed with 2-0 Vicryl interrupted sutures. Both incisions were closed with 3-0 Vicryl buried interrupted sutures in the dermis and a running 4-0 Monocryl subcuticular stitch in the skin and were dressed with Dermabond. Patient was allowed to wake up in the operating room and was taken to the recovery room in stable condition. There were no immediate complications of this operation. All counts were reported correct in the case. Blood loss was 10 cc. The patient was neurologically at her baseline postoperatively. Estimated Blood Loss 10 IV Fluids 1,000 Complications None Condition Stable Disposition PACU [facility] Billing Surgery - Charge Forward: Surgery Billing
[2023-04-20] MEDS: fentaNYL CITRATE INJ (*CRX) 100 MCG/2 ML VIAL 25 MCG IV PUSH ×7 (13:25→14:46)
[2023-04-20] MEDS: HYDROmorphone HCL INJ (*CRX) 1 MG/ML SYR 0.5 MG IV PUSH ×2 (14:28→14:41)
[2023-04-20] MEDS: oxyCODONE HCL (*CRX) 5 MG TAB IR PO (15:06)
== END 2023-04-20 16:07 | disposition home or self-care (01) ==
PROVIDERS: Visit Provider Neurological Surgery
PROC: (CPT 63685; principal; 2023-04-20 11:30)
DX: Z45.42 Encounter for adjustment and management of neurostimulator (principal); M79.606 Pain in leg, unspecified; M54.9 Dorsalgia, unspecified; G89.29 Other chronic pain; Q05.9 Spina bifida, unspecified; F41.9 Anxiety disorder, unspecified
CPT/HCPCS: 63685; 63664; 36415; 85014; 85018; 86850; 86900; 86901; 99199; A9270; J0330; J1100; J1170; J2250; J2370; J2405; J2704; J3010; J3370; J7120

== ENCOUNTER 2025-10-08 08:19 | Emergency (ER) | payer OTHER, SELFPAY ==
[2025-10-08 08:30] VITALS: BP 112/70; PULSE 97; RESP 18; TEMP 37; O2SAT 100
--- OUTSIDE RECORDS SUMMARY | 2025-10-08 08:34 | XMS_ITS | Patient Health Record ---
Author Organization [facility] [employer] [facility] Address [address] [facility] [address] [place] [address] Care Team Providers Care Special Education Secretary Name Role Phone Patricio Thomas Unavailable [phone] Reason For Referral No Information Medications Medication SIG (Take, Route, Frequency, Duration) Notes Start Date End Date Status busPIRone HCl 10 MG Tablet Oral Active Desipramine HCl 10 mg Tablet Oral Active NIFEdipine ER 30 MG Tablet Extended Release 24 Hour Oral Act paulo Topiramate 25 MG Tablet Oral Active DULoxetine HCl 30 MG Capsule Delayed Release Particles Oral Active Iwt-Hh-[id number] 0.18/0.215/0.25 MG-25 MCG Tablet Oral Active Linzess 290 MCG Capsule Oral Active busPIRone HCl 15 MG Tablet Oral Active Plan Of Treatment No Information Insurance Providers Payer Name Payer Address Payer Phone Subscriber Number Group Number Insured Name Patient Relationship to Insured Coverage Start Date Coverage End Date [facility] [address] [place] [phone] [id number] ADENIKE DELACRUZ Self - patient is the insured
--- OUTSIDE RECORDS SUMMARY | 2025-10-08 08:34 | XMS_ITS | Clinical Summary ---
Author Organization [facility] Address [address] [place] [address] Care Team Providers Care Complaint Investigations Officer Name Role Phone Sabrina Bettencourt MD Primary Care Provider [phone] Allergies Active Allergy Reactions Criticality Noted Date Comments Cephalexin Hives High 09/10/2019 First time occurred 10 years ago when given for a back surgery. Had to receive benadryl. Hives and itching lasted two hours. Medications ibuprofen 200 mg tab/cap Take 2 tablet/capsul e (400 mg total) by mouth every 6 (six) hours as needed for pain or headaches NONE IN PAST MONTH Active buPROPion XL (WELLBUTRIN XL) 300 mg 24 hr tablet Take 1 tablet (300 mg total) by mouth every morning 90 tablet 4 4 Active topiramate (TOPAMAX) 25 mg tablet Take 1 tablet (25 mg total) by mouth 2 (two) times a day 180 tablet 1 5 Active artificial tears (SYSTANE) 0.3 % gelIndications: Dry Eye Apply 1 drop to both eyes 4 (four) times a day as needed Active oxyCODONE (ROXICODONE) 5 mg immediate release tabletIndicatio ns:Pain Take 1 tablet (5 mg total) by mouth every 4 (four) hours as needed for pain 10 tablet 5 Active docusate sodium (COLACE) 100 mg capsuleIndicati ons:constipatio n Take 1 capsule (100 mg total) by mouth 2 (two) times a day 30 capsule 5 Active prucalopride (MOTEGRITY) 2 mg tablet TAKE 2 TABLETS(4 MG) BY MOUTH DAILY 60 tablet [address] (CYMBALTA) 30 mg capsuleIndicati ons:Anaclitic depression Take 3 capsules (90 mg) PO daily 270 capsule 1 5 Active guanFACINE ER (INTUNIV) 1 mg tablet extended release 24 hr Take 1 tablet (1 mg total) by mouth daily 90 tablet 1 5 Active busPIRone (BUSPAR) 15 mg tabletIndicatio ns:Generalized Anxiety Disorder Take 1 tablet (15 mg total) by mouth 2 (two) times a day 180 tablet 1 5 Active Linzess 290 mcg capsule TAKE 1 CAPSULE(290 MCG) BY MOUTH EVERY NIGHT 30 capsule 2 5 Active desipramine (NORPRAMIN) 50 mg tabletIndicatio ns:Anaclitic depression Take 1 tablet (50 mg total) by mouth daily 90 tablet 5 Active desipramine (NORPRAMIN) 50 mg tablet TAKE 1 TABLET(50 MG) BY MOUTH DAILY 90 tablet 1 5 09/30/20 25 Discontinu ed(Reorder ) Active Problems Problem Noted Date Diagnosed Date Hemorrhoids 05/08/2025 Attention deficit hyperactivity disorder (ADHD) 01/26/2024 Family history of ovarian cancer 07/20/2023 Family history of breast cancer 07/20/2023 Residual hemorrhoidal skin tags 01/16/2023 Overview (01/16/2023): Added automatically from request for surgery [id number] Weight gain 11/02/2021 Assessment & Plan (11/02/2021 3:35 PM DATABASE PROGRAMMER ANALYST): ~80 lbs during . Will check TSH. Work on healthy diet, regular physical activity, etc. History of disorder of central nervous system History of recurrent UTIs 01/01/2021 Overview (06/10/2021): -reports history of recurrent UTIs , denies dysuria, UA pending 04/23/2021 [x] UCx sent for urinary frequency on 02/26, negative UA on 03/26/2021 + Leukocytes - culture Negative - urine CX on 05/25 no significant growth. - NO concerns today. 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 She was diagnosed at age 12, when she began experiencing extreme low back pain and lower extremity weakness. She denies any issues with incontinence. Currently, her pain is mostly managed by a T9 spinal cord stimulator. We discussed use of a spinal cord stimulator in . We discussed that information on SCS in is limited to case reports and case series. In a literature review by Dieudonne et al (Neuromodulation 2011), which was comprised of 12 cases, the authors note that there does not seem to be a clear association with congenital malformations. Of the 4 patients who opted for continuous SCS use during , 2 pregnancies resulted in full term deliveries, 1 resulted in delivery at 35 weeks, 1 resulted in early delivery from IUGR, and 1 miscarried at 6 weeks. One patient who utilized SCS for the first 28 weeks of had an uncomplicated full term delivery. We reviewed that, in general, SCS use is not recommended in given this paucity of data; however, the potential risks of SCS use in must be weighed carefully with the risks of SCS discontinuation. She is aware that her options for pain control will be even further limited in the context of and her pain response to will not be able to be predicted. After this discussion, she has opted for continuation of SCS use in any future . We also discussed our recommendation for additional supplementation of folic acid (4mg total) for 3 months prior to when she will start trying to conceive. We recommend a consultation with OB anesthesia prior to (of note, her father is an OB anesthesiologist at [facility]) to discuss options for analgesia during delivery. At this time, we will defer definitive plans for mode of delivery She is aware that neuraxial anesthesia will be very likely not an effective option for her given her prior surgeries and known scar tissue. We reviewed options for opioid TRAINING OFFICER in labor with pudendal block and general anesthesia for a section. While her initial preference was a primary delivery under general anesthesia, she is open to ongoing discussion after reviewing recovery times from delivery vs. Vaginal delivery. Regardless, we discussed our plan for close coordination of care between pain management, neurosurgery, and anesthesia during her and delivery. 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 Huff has a history of depression and anxiety diagnosed as a teenager. She has been on duloxetine since then. In addition to mood disorder, this has also somewhat helped with her pain. She has recently initiated buproprion and states this has helped immensely with mood symptoms. She was counseled regarding SNRI use in . This medication is not known to increase the risk for congenital malformations, miscarriage, growth restriction, or . We discussed that post-natally, there have been observations of a transient, withdrawal type syndrome. Buproprion is not associated with congenital malformations. Currently, her mood stable on this current regimen. We reviewed the recommendation for the lowest effective dose possible and close follow up with a psychiatrist/therapist/psychologist. We discussed that she is at increased risk for worsening mood and recommend close surveillance. We gave her information about our Behavioral Health program and would recommend a referral once . Pyelonephritis 11/24/2012 Gall stone 11/24/2012 Scoliosis 03/13/2012 Arthralgia of shoulder 03/13/2012 Lumbago 03/13/2012 Resolved Problems Problem Noted Date Diagnosed Date Resolved Date Abnormal menstrual cycle 11/02/202111/2023 Assessment & Plan (11/02/2021 3:18 PM DATABASE PROGRAMMER ANALYST): Discussed that this can be normal in the post- period and also with starting control. Often can take up to 3 months to normalize. Continue to monitor, reach out to OB if this continues to be problematic. Encounter for contraceptive management 08/17/2021 01/26/2024 Oral contraceptive pill surveillance 08/17/2021 01/26/2024 care following delivery 06/23/2021 08/09/2021 Overview (06/26/2021): # ID: Afebrile. No signs/symptoms of infection. #COVID-19: Previously received COVID-19 Vaccination # Heme: EBL 1000 mL. Pre-op 10.5 > 9.4 POD1 No symptoms acute blood loss anemia. # CV/Pulm: Pre-eclampsia without severe features - Blood pressures normotensive to MR with < 50% MR on nifedipine XL 30mg. Asymptomatic, denies MIRZA/RUQ pain/vision changes. Tachycardic to 140s imemdiately following delivery, now HR 90s-110s. CBC/CMP wnl, UPC 0.44. CTM closely. Enrolled in home BP monitoring. # GI/: Tolerating PO. Voiding spontaneously. # Spinal dysraphism: Plan to restart nerve stimulator. # Pain: Moderately controlled with above regimen. Ensure that patient gets lidocaine patches today. Will put nursing communication in, ordered yesterday. Refuses oxycodone due to concern for constipation (has constipation at baseline) and gabapentin (due to weight gain in past). # Post DVT prophylaxis: The patient has the following MAJOR risk factors none and the following MINOR risk factors BMI 30-39, PPH (EBL >/= 1000 mL), delivery and preeclampsia. enoxaparin 40 mg daily ordered for VTE prophylaxis. # MOC: Declines s/p counseling # MOF: # COVID Vaccination Status: Previously received # Disposition: Follow up task not sent. Continue routine postoperative care. Normal labor 06/22/2021 01/26/2024 Pre-eclampsia in third trimester 06/18/2021 08/09/2021 Overview (06/18/2021): Admitted to [facility]- diagnosed with Bps and positive UPC (0.4). Diagnosed with preeclampsia without severe features. Patient has cuff, reports Bps at home all <150/100. Advised patient maintain BP log. BP parameters reviewed. Last labs 06/16 wnl. Return next week for labs and visit. Precautions reviewed Delivery at 37 weeks (scheduled) Gestational hypertension, third trimester 06/02/2021 08/09/2021 Overview (06/10/2021): - Ms Huff was recently seen in [facility] and was noted to have mild elevation of her BP. - She has been performing BP monitoring at home, Normal - Mild range - We discussed S/SX to present to [facility] including severe range BP, MIRZA, visual disturbance, RUQ/epigastric pain, decrease FM etc. - Weekly visits with labs and 2x/week monitoring. - CS to 37 weeks - Scheduled. Elevated blood pressure affe cting in third trimester, antepartum 05/25/2021 Overview (05/25/2021): #elevated BP: Patient with one mild range BP (143/92) in [facility] on 05/25/2021. Will continue to monitor in outpatient setting, intrapartum and post-. Vaginal discharge during pre gnancy in third trimester 05/25/2021 08/09/2021 Overview (05/25/2021): - Microscopy: Pooling -, ferning -, nitrazine - - Bedside ultrasound: DVP 6.09cm - Urine dip: 3+ leukocytes, 1+ protein - Low clinical suspicion for rupture - Will send urine for culture - Patient to follow up with regular OB at scheduled appointment next week Depression affecting pregnan cy in first trimester, antepartum 01/01/2021 08/09/2021 Overview (06/10/2021): - Diagnosed with depression and anxiety as a teenager - Currently on duloxetine (Cymbalta) and buproprion (Buspar) - S/p counseling 12/04/20 - Mood stable 05/14/21, [x] [facility] referral - Reports stable mood 06/10/2021 Educated about COVID-19 virus infection 01/01/2021 07/25/2024 Overview (01/01/2021): Risks and benefits of COVID vaccine in reviewed. We discussed: - COVID-19 infections pose higher risk for both her and her fetus during . Risks for her include need for ICU admission, ventilator support, ECMO, and . Risks for the fetus include IUGR, brith. - COVID-19 vaccine can prevent 94-95% of infections with low side effect and risk profile - Limited/no data regarding vaccine during , although theoretical risk low. Specifically, the vaccine has been tested in rigorous trials. It is not live vaccine, it does not cause infection, it does not enter a cell's nucleus, it does not change anyone's DNA, and it degrades quickly in the body. - There were almost 30 pregnancies in the Ntirety and Moderna trials, and no increased risks during was noted for those who received the vaccine. But, these numbers are still too small for us to make a conclusion. We discussed that going forward with vaccination during is a personal decision, and the following considerations may help with the decision: - the level of COVID in the community - the risk of COVID exposure from work or other family members - the risk of severe disease from COVID based on other health conditions - timing during trimesters - knowing that more information about the vaccine will come out in the next few months in If the patient chooses to proceed with the vaccine, we reviewed the side effect profile, including up to 16% of fever which is most common after the second dose. We reviewed the possible association of fever in the first trimester and defects, and the recommendation of Tylenol for defervescence in the setting of a fever during . We discussed that whichever decision she makes, we will support her. Labia irritation 12/04/2020 03/26/2021 Overview (12/04/2020): On the patients right side in the groin there is a small area of granulation tissue from a prior ingrown hair. Silver nitrate applied on 12/04/20 Plan for repeat silver nitrate as needed Supervision of high-risk pre gnancy, unspecified trimester 11/18/2020 08/09/2021 Overview (06/18/2021): [x] Full MF Care; [] Red Team [x] Blue Team Referring Provider: Self referral. Prior [facility] patient. [] or Medicare Insurance [x] Dating Criteria: LMP 10/12/20 NABIL 07/19/21 [x] Labs: Rh [A+], Ab [Neg], Rubella [Imm], HIV [Neg], HepBSAg [Neg], RPR [NR], GC/CT [Neg/Neg] [] Genetic Screening: [x] 1T screen- wnl, [] 2T screen, SMA/CF negative [x] CBC/Hgb on 12/04, CBC: 12.9/39.6/308 [x] UCx: collected 01/01- Negative [x] Pap: Negative for squamous intraepithelial lesion or malignancy / HPV Neg [x] LD ASA (if indicated) starting at 12 weeks: no indication [x] EPDS [ ]; PNBHS referral (if indicated) 2nd Tri Labs: [x] Anatomy ultrasound: all views cleared [x] CBC: 12.5/37.1/322K 1hr gtt at 24-28wks: 133 done 04/15/2021 [x] Flu Shot (Sep-Dec):rcvd 2/5 [x] Tdap (27-36wks):04/23/2021 [x] Covid vaccine: 1st dose: , 2nd dose 03/12/21 3rd Tri Labs: [x] CBC: 12.0/35.9/327K HIV: NR RPR: NR [x] GBS: Negative [] GC/CT (if indicated): [x] COVID testing: not needed, vaccinated [x] Hibiclens: given 06/10/2021 Counselling [x] MOD: pCS under general anesthesia after counseling, C/S scheduled on 06/29/21, 37.1 weeks @ 1130 [x] Place of delivery: [facility] [x] MOC: anticipates Mirena 6 w PP [x] Method of feeding: anticipates breast [x] Healthcare Account Manager: Chosen [x] PP Depression Discussed: 06/18/2021 Recurrent UTI 06/08/2020 01/26/2024 Overview (12/04/2020): - per patient report - [facility] - screening Urine Culture on 12/04 Assessment & Plan (06/08/2020 1:42 PM CDT): Ms. Huff states she has had long-standing issues with recurrent UTIs, which she attributes to her chronic constipation. [facility]. We discussed our approach to management of recurrent UTIs (2 or greater UTis) in with antibiotic suppression therapy and the importance of prompt and complete treatment of each infection. Vaginal discharge 06/08/2020 08/09/2021 Overview (06/08/2020): - GCCT, trich, fungal cultures sent - suspect vulvovaginal candidiasis. Continue current therapy with Monistat Constipation during pregnanc y in first trimester 01/30/2019 08/09/2021 Overview (06/10/2021): - Current regimen: Linzess 145 mg BID and pelvic floor physical therapy - S/p counseling 06/08 - continue colace, miralax PRN and good hydration - will ensure she has a good regimen Post Op after delivery. Assessment & Plan (01/25/2021 2:19 PM DATABASE PROGRAMMER ANALYST): Continues to have constipation. Reviewed recommendations. Assessment & Plan (06/08/2020 1:33 PM CDT): Ms. Huff has significant constipation, attributed to slowed transit time. Her symptoms are currently well controlled on Linzess BID and also with pelvic floor physical therapy. She follows closely with her management retail intern, Dr. Louie. We provided anticipatory guidance that her symptoms will likely worsen in due to the effects of progesterone and presence of a gravid uterus. We discussed the plan for a multi-disciplinary approach to helping managing her GI symptoms in a future . We discussed the safety of pelvic floor PT during , although it may become challenging at a later gestational age. Unspecified urinary incontinence 08/07/2014 01/26/2024 Back pain in 09/15/201308/09 Overview (05/14/2021): - 2/2 tethered cord - counseled 06/08 to discontinue topiramate in - back pain is stable, not on topiramate or opioids Assessment & Plan (06/08/2020 1:38 PM CDT): Ms. Huff currently has chronic low back pain from her tethered cord. She utilizes topimarate as part of her pain control regimen. We discussed that topiramate is associated with increased risk for oral clefting, orofacial malformations, limb anomalies, and small for gestational age infants. Thus, we do not recommend its continuation in . We discussed that NSAIDs should be avoided in . Ms. Huff states she also tries to avoid opioid medications given severe constipation. We reviewed the importance of a multi-disciplinary approach to her pain management in a future . She plans to establish care with Dr. Seaman (Pain Medicine) prior to ). Encounter for preventive health examination 10/12/2012 01/26/2024 Gynecologic exam normal 10/12/201211/2023 Tingling of skin 07/27/2012 01/26/2024 Encounters Date Type Department Care Team Description 08/12/2025 Orders Only [facility] [address] [place] [address] Medical Office [address], [address] [place] [address] Sabrina Bettencourt MD from Last 3 Months Immunizations Immunization Administration Dates Next Due HPV, Quadrivalent 01/09/2008,09/05/2007,07/02/20 07 Influenza, Quadrivalent, Mariana l Culture-based MDCK, Preservative Free, Antibiotic Free, Intramuscular 01/01/2021 Influenza, Quadrivalent, Spl it, Intramuscular 09/20/2018 Influenza, Quadrivalent, Spl it, Preservative Free, Intramuscular 09/11/2019 Influenza, Unspecified 10/27/2023 Moderna SARS-CoV-2 Monovalen t Vaccination (12+ YRS) 03/12/2021,02/12/2021 Tdap 04/23/2021 Surgical History Surgery Date Site/Laterality Comments BACK SURGERY 11/27/2009 - 11/26/2010 Back Surgery - 4 back surgeries (Added by TW Conv) Last one in 2009 SPINAL CORD STIMULATOR IMPLANT 11/27/2022 - 11/26/2023 First put in in 2014 COLONOSCOPY 11/27/2018 - 11/26/2019 LAPAROSCOPIC CHOLECYSTECTOMY 11/27/2012 - 11/26/2013 SECTION 11/27/2020 - 11/26/2021 Medical History Medical History Date Comments GERD (gastroesophageal reflux disease) Chronic constipation Chronic diarrhea Abdominal pain Constipation Rectal bleeding Colon polyps Depression Anxiety Kidney stone Tethered cord syndrome (HCC) Memory loss PONV (postoperative nausea and vomiting) Family History * Patient is adopted Medical History Relation Name Comments Cancer Mother Lupus Mother Multiple sclerosis Mother Rheum arthritis Mother benign breast tumor Mother Anesthesia problems Neg Hx Relation Name Status Comments Father Alive Mother Alive Social History Tobacco Use Types Packs/Day Years Used Date Smoking Tobacco: Never Passive Smoke Exposure: Past Smokeless Tobacco: Never Tobacco Cessation:Counseling Given: Not Answered Comments:Pt states some days she smokes Marijuana Alcohol Use Standard Drinks/Week Comments Not Currently 0 (1 standard drink = 0.6 oz pur e alcohol) 3-5drinks/week AUDIT-C Answer Date Recorded Q1: How often do you have a drink containing alc ohol? 2-4 times a month 05/19/2025 Q2: How many drinks containi ng alcohol do you have on a typical day when you are drinking? 1 or 2 05/19/2025 Q3: How often do you have si x or more drinks on one occasion? Never 05/19/2025 PHQ-2 Answer Date Recorded PHQ-2 Total Score (If total score is 3 or more points, staff should administer the PHQ-9) 1 07/20/2023 Personal Safety Answer Date Recorded Have you ever been in or are you currently in a harmful physical or emotional relationship or is someone making you feel afraid or unsafe? Denies 05/19/2025 Comments No Sex and Gender Information Value Date Recorded Sex Assigned at Not on file Legal Sex Female 10:56 AM DATABASE PROGRAMMER ANALYST Gender Identity Female 11/30/2020 8:04 PM DATABASE PROGRAMMER ANALYST Sexual Orientation Straight 08/30/2019 6: 45 AM CDT Obstetrics History Para Term AB IAB SAB Ectopic Multiple Livin g Live Births 1 1 0 1 0 0 0 0 0 1 1 Date Outcome GA Total Labor Labor/2nd/3rd Weight Sex Type Anes PTL Renita A1 A5 Name Clin 2020 36w 2d 0h 01m 0h 01m 2.89 kg (6 lb 5.9 oz) M CS-LT ranv Genera l Y Livin g 7 8 NUBIAYUDITH Sydney Marie, MD Complications:None Delivery Location:[facility] Main C ampus ([facility] L AND D PROCEDURE) Last Filed Vital Signs Vital Sign Reading Time Taken Comments Blood Pressure 117/82 06/26/2025 11:15 AM CDT Pulse 108 06/26/2025 11:15 AM CDT Temperature 36.1 C (97 F) 06/26/2025 11:15 AM CDT Respiratory Rate 20 06/26/2025 11:15 AM CDT Oxygen Saturation 100% 06/26/2025 11:15 AM CDT Inhaled Oxygen Concentration - - Weight 67 kg (147 lb 12.8 oz) 06/26/2025 11:15 A M CDT Height 165.1 cm (5' 5) 06/26/2025 11:15 AM CDT Body Mass Index 24.6 06/26/2025 11:15 AM CDT Plan of Treatment Health Maintenance Due Date Last Done Comments Hepatitis C Screening 1990 Hepatitis B Screening 2008 Pneumococcal vaccine <65 (1 of 2 - PCV) 2009 Depression Screening 07/20/2024 07/20/2023, 07/20/2023, 08/17/2021, Additional history exists Covid-19 Vaccine (3 - 2024-2 6 season) 2025 03/12/2021, 02/12/2021 Influenza Vaccine (#1) 2025 , 01/01/2021, 09/11/2019, Additional history exists Cervical Cancer Screening 12/04/2025 12/04/2020 Regular Well Visit/Exam 18-64 01/10/2026, 07/20/2023, 02/02/2022, Additional history exists DTaP/Tdap/Td Vaccine (2 - Td or Tdap) 04/23/2031 04/23/2021 HPV Vaccines Completed 01/09/2008, 08/27, 07/02/2007 Varicella Vaccines Discontinued Goals Goal Patient Goal Type Associated Problems Recent Progress Patient-Stated? Author CCM Chronic Pain Care Plan Chronic Care Management Macy Up, RN Note: Problem: Chronic Pain Goals: 1. Minimize further functional decline 2. Maximize quality of life 3. Control pain Strategies: - Activity/exercise program recommendation - Conservative stepwise pain medicine strategy with multi-disciplinary approach - Recommend healthy lifestyle strategies and compensatory methods as needed Medical Devices Implanted Type Area Sand Mill Grinder Device Identifier Shelf Expiration Date Model / Serial / Lot Spinal Cord Stimulator-11/27/2015 Mri Safe Implanted:11/2015 (Quantity not on file) Spinal Cord Stimulator Left: Back AwesomePiece Description:MAVERICK Walker by Dr Conway Procedures Procedure Name Priority Date/Time Associated Diagnosis Comments PAP AND HIGH RISK HPV, REFLEX TO GENOTYPING Routine 12/04/2020 11:04 AM DATABASE PROGRAMMER ANALYST Supervision of high-risk , unspecified trimester from Last 3 Months or Most Recently Relevant to Health Maintenance Results * Pap and High Risk HPV, reflex to Genotyping (12/04/2020 11:04 AM DATABASE PROGRAMMER ANALYST) Swab 12/04/2020 11:0 4 AM DATABASE PROGRAMMER ANALYST 12/04/2020 12:14 PM DATABASE PROGRAMMER ANALYST Narrative [facility] - 12/10/2020 12:42 PM DATABASE PROGRAMMER ANALYST EPIC results best viewed via link to PDF [facility] [place] [address] CYTOPATHOLOGY REPORT FINAL Patient Name: ADENIKE HUFF Gender: Ja : 1990 (Age: 30) Address: [address] [place] [address] Hospital #: [id number] Service: RESIZER OPERATOR Location: [facility] Patient Type: [facility] Lab Taken: 12/04/2020 Received: 12/04/2020 Accessioned: 12/07/2020 Reported: 12/10/2020 Physician(s): Dr. Ruthie Forbes M.D. FINAL INTERPRETATION SOURCE OF SPECIMEN: Liquid based Thin Prep pap with HPV STATEMENT OF ADEQUACY: - Satisfactory for evaluation - No endocervical/transformation zone sample present in a patient GENERAL CATEGORY: - Negative for squamous intraepithelial lesion or malignancy Comments HPV Result: NEGATIVE for high risk types of Human Papilloma Virus (HPV) RNA This probe detects the presence of HPV types: 16, 18, 31, 33, 35, 39, 45, 51, 52, 56, 58, 59, 66 and 68. This HPV test was performed at [facility] in [place], [place] utilizing the Gen-Probe Aptima assay. [email or web address]/10/2020 12:42 PARTHA Collins(ASCP) Report Electronically Reviewed and Signed Out By PARTHA Collins(ASCP) 12/10/2020 12:42:06 Cervicovaginal Cytology (Pap Test) Disclaimer: The Pap test is a screening test used to detect cervical cancer and its precursors; it is not a diagnostic procedure. False negative and false positive results do occur. Pap test results should be interpreted in the context of pertinent clinical information and biopsy results as indicated. Gross Description A. Liquid based Thin Prep pap with HPV: Cervical/vaginal - Screening ThinPrep with HPV Clinical Diagnosis and History Last Menstrual Period: unknown Menstrual History: The patient is a 30 year old woman with routine pap smear. Report Images and scanned documents, if included only viewable in PDF version The performance characteristics of some immunohistochemical stains, in-situ hybridization and fluorescence in-situ hybridization tests and immunophenotyping by flow cytometry cited in this report (if any) were determined by the Surgical Pathology Department at [facility] as part of an ongoing quality engineering manager program and in compliance with federally mandated regulations drawn from the Clinical Laboratory Improvement Act of 1988 (CLIA '88). Some of these tests rely on the use of analyte specific reagents and are subject to specific labeling requirements by the US Food and Drug Administration. Such diagnostic tests may only be performed in a facility that is certified by the Department of Health and Human Services as a high complexity laboratory under CLIA '88. The FDA has determined that such clearance or approval is not necessary. This test is used for clinical purposes. It should not be regarded as investigational or for research. Nevertheless, federal rules concerning the medical use of analyte specific reagents require that the following disclaimer be attached to the report: This test was developed and its performance characteristics determined by the Surgical Pathology Department of [facility]. It has not been cleared or approved by the U. S. Food and Drug Administration. Ruthie Forbes MD LAB CYTOLOGY ORDERABLES [facility] Result Performing Organization Address City/State/[facility] Co de Phone Number [facility] [address] [address] from Last 3 Months or Most Recently Relevant to Health Maintenance Insurance [facility] H[facility]/PPO Address: [facility] [address] [place] [address] [employer]IG[employer] CIGNA Advance Directives For more information, please contact: [phone] * Full Code (Latest Code Status on File) Date Activated Date Inactivated Comments 06/23/2021 2:30 AM 06/26/2021 10:54 PM * Full Code Date Activated Date Inactivated Comments 06/22/2021 10:58 PM 06/23/2021 2:30 AM Full CPR in case of cardiopulmonary arrest * Full Code Date Activated Date Inactivated Comments 06/15/2021 10:50 PM 06/16/2021 11:09 PM * Full Code Date Activated Date Inactivated Comments 12/10/2018 2:36 PM 12/10/2018 10:16 PM Care Teams Complaint Investigations Officer Relationship Specialty Start Date End Date Sabrina Bettencourt MD PCP - General Internal Medicine 04/30/20
[2025-10-08 08:40] LABS: EDSTREPNEGPOS1 Negative (Negative)
--- NOTE | 2025-10-08 08:59 | ED.URI ---
HPI - URI/Sore Throat General Chief Complaint: Upper Respiratory Infection Stated Complaint: Sore throat Time Seen by Provider: 10/08/25 08:40 Source: patient and RN notes reviewed Mode of arrival: ambulatory Limitations: no limitations History of Present Illness HPI Narrative: 35-year-old female presents Express Care complaining of sore throat, cough, congestion, runny nose, body aches, chills started yesterday. Patient denies any other upper respiratory symptoms, fevers, nausea vomiting, diarrhea, chest pain, difficulty breathing, shortness of breath, abdominal pain, or any other symptoms. Patient has been taking DayQuil NyQuil said it has helped with some of her symptoms. Related Data Home Medications ?Medication ?Instructions ?Recorded ?Confirmed ?Last Taken ?Type buspirone 15 mg tablet 15 mg PO BID 02/09/23 04/12/23 Unknown History duloxetine 30 mg capsule,delayed 90 mg PO DAILY 02/09/23 04/12/23 Unknown History release linaclotide 290 mcg capsule 290 mcg PO DAILY 02/09/23 04/12/23 Unknown History (Linzess) desipramine 25 mg tablet 25 mg PO HS 04/12/23 04/12/23 Unknown History bupropion HCl 300 mg 24 hr tablet, mg PO 10/08/25 Unknown History extended release guanfacine 1 mg tablet,extended mg PO 10/08/25 Unknown History release 24 hr prucalopride 2 mg tablet mg 10/08/25 Unknown History topiramate 25 mg tablet mg 10/08/25 Unknown History Allergies Allergy/AdvReac Type Severity Reaction Status Date / Time cephalexin (From Keflex) Allergy Hives Verified 10/08/25 08:28 Review of Systems Review of Systems: CONSTITUTIONAL: Denies fever or sweats. Positive for body aches and chills. EYES: Denies visual changes, redness, or discharge. ENT: Positive for rhinorrhea, congestion, and sore throat. Negative for otalgia. CARDIOVASCULAR: Denies chest pain, palpitations, or edema. RESPIRATORY: Positive for cough. Negative for wheezing or Dyspnea. GASTROINTESTINAL: Denies abdominal pain, nausea, vomiting, or diarrhea. GENITOURINARY: Denies dysuria or hematuria. SKIN: Denies rash or itching. MUSCULOSKELETAL: Denies back pain, joint pain, or myalgia. NEUROLOGIC: Denies headache, numbness, or weakness. PSYCHIATRIC: Denies anxiety or depression. All other systems reviewed are negative, except as documented in HPI. [facility] Past Medical History Medical History Anxiety Cholecystectomy planned 2012 Tethered cord syndrome Surgical History Surgical History History of back surgery L4- L5 2010 X4 H/O section 2020 S/P insertion of spinal cord stimulator Social History Social History Social History: Esperanza is very confident filling out medical forms. In the last 12 months she has not received assistance from an organization or program. Alcohol intake: current Alcohol use details: VERY RARE Substance use: never Substance use type: does not use Lack of Transportation: No Lack of Food: Never True Current Housing: I Have Housing Concerned About Future Housing: No Difficulty Paying Gas/Electric Bills: No Difficulty Paying for Meds: No Currently Unemployed: No Education: Bachelor's Degree Difficulty w/ Childcare or Family Care: No Living arrangements: with family Gender identity (if verbalized by the patient): Female Sexual Orientation (if Verbalized by the Patient): Straight or Heterosexual Spiritual care concerns: No Comments At the time of my signature, I reviewed and agree with the nursing past medical, surgical, social, and family history. There is no relevant family history pertinent to the patient complaint. Exam Narrative: GENERAL: This is a well-nourished, well-developed adult, in no apparent distress. They are non ill-appearing, nontoxic appearing. HEAD: normocephalic, atraumatic. EYES: Sclera clear/white. Conjunctiva normal. Vision is grossly intact. Extraocular movements intact EARS: External ears normal, auditory canals clear and without drainage, TMs normal without perforation. Hearing grossly intact. NOSE: External nose normal with no obvious nasal discharge, nasal turbinates erythematous without exudate, no rhinorrhea. THROAT: Mucous membranes moist, posterior pharynx erythematous. No exudate. Uvula midline. Postnasal drip present. NECK: Neck supple, non-tender without lymphadenopathy, masses or thyromegaly. CARDIOVASCULAR: Regular rate and rhythm without murmurs, gallops, or rubs. RESPIRATORY: Clear to auscultation. Breath sounds equal bilaterally. No wheezes, rales, or rhonchi. SKIN: warm, Dry, intact with no suspicious lesions or rash, good texture and turgor. NEURO: awake, alert, and oriented to person, place and time. There were no obvious focal neurologic abnormalities. EXTREMITIES: No joint tenderness, effusion, or edema noted. BACK: Nontender without deformity. No CVA tenderness. Course Course Emergency Course: Portions of this record may have been created with voice recognition software Level of Care: Express Care Visit Vital Signs Vital signs: Vital Signs Temperature 98.6 F 10/08/25 08:30 Pulse Rate 97 10/08/25 08:30 Respiratory Rate 18 10/08/25 08:30 Blood Pressure 112/70 10/08/25 08:30 Pulse Oximetry 100 10/08/25 08:30 Oxygen Delivery Room Air 10/08/25 08:30 Temperature 98.6 F 10/08/25 08:30 Pulse Rate 97 10/08/25 08:30 Respiratory Rate 18 10/08/25 08:30 Blood Pressure 112/70 10/08/25 08:30 Pulse Oximetry 100 10/08/25 08:30 Oxygen Delivery Room Air 10/08/25 08:30 Reviewed MDM - URI/Sore Throat MDM Narrative Medical decision making narrative: Rapid strep negative. A throat culture is pending. Symptoms likely viral in etiology. Discussed supportive care. Discussed physical exam findings. Advised supportive measures and signs/symptoms to go to the ER. Pt is appropriate for outpt treatment and f/u. Differential Diagnosis Differential diagnosis: Likely upper respiratory infection, sinusitis, viral infection and pharyngitis Lab Data Labs: Lab Results 10/08/25 Range/Units 08:37 POC Grp A Strep Screen Negative (Negative) Critical Care Time Critical Care Time Critical Care Time: No Discharge Plan Discharge Clinical Impression: Upper respiratory infection Qualifiers: URI type: unspecified viral URI Qualified Code(s): J06.9 - Acute upper respiratory infection, unspecified Patient Disposition: Home Condition: Stable Instructions: Antibiotic Form, Upper Respiratory Infection (ED) Additional Instructions: Your rapid strep swab was negative today at [facility]. You will be notified in a few days if the culture comes back positive for strep, and appropriate antibiotics will be called in for you at that time. Your symptoms are likely due to a viral illness, which is not treated with antibiotics. Viral symptoms can be present for up to 7-10 days. Take Tylenol as needed for fever or pain. Follow instructions on the bottle. Do not take additional Tylenol if your taking DayQuil and NyQuil as it already contains Tylenol. Supplement with B vitamins, vitamin-C, vitamin-D, and zinc for immune support. Rest and stay hydrated. Follow up with your PCP in 3-5 days if symptoms are not improving. Go to the ER immediately if you develop difficulty breathing or swallowing, vomiting, fevers, breathing problems, chest pains, or any serious concerns. Patient Language: [place] Citizen Prescriptions: No Action topiramate 25 mg tablet bupropion HCl 300 mg tablet extended release 24 hr PO guanfacine 1 mg tablet extended release 24 hr PO prucalopride 2 mg tablet Linzess 290 mcg capsule 290 mcg PO DAILY duloxetine 30 mg capsule,delayed release(DR/EC) 90 mg PO DAILY buspirone 15 mg tablet 15 mg PO BID desipramine 25 mg tablet 25 mg PO HS Follow-up/Referrals: Sg,Jason Roman. [Other] Time of Disposition: 08:56
== END 2025-10-08 09:05 | disposition home or self-care (01) ==
DX: J06.9 Acute upper respiratory infection, unspecified (principal); F41.9 Anxiety disorder, unspecified
CPT/HCPCS: 87081; 87880; 99213; G0463